=== PATIENT | female | born 1965 | race Caucasian/White ===

== ENCOUNTER 2019-10-03 08:51 | Inpatient (IN) | payer OTHER ==
[2019-09-16 15:29] VITALS: BMI 30.7
--- NOTE | 2019-10-03 07:46 | HP ---
Admitting History and Physical - Admission Chief Complaint: left hip osteoarthritis x years History of Present Illness: 53 year old female presents in regard to their left hip. Longstanding history of left hip osteoarthritis. Patient complains of pain, limited ROM, difficulty ambulating and difficulty completing ADLs. Patient has failed conservative treatment measures including PO medications, injections, exercise programs and activity modification. At this point, patient wishes to proceed with surgical intervention, a left total hip arthroplasty - MAKOplasty. History Source: Patient - Past Medical History Cardiovascular: Yes: HTN ...LMP Comment: 2017 Psych: Yes: Depression Musculoskeletal: Yes: Osteoarthritis (left hip) - Past Surgical History Additional Past Surgical History: See history & physical. - Smoking History Smoking history: Never smoked Have you smoked in the past 12 months: No - Alcohol/Substance Use Hx Alcohol Use: Yes (RARE) Home Medications - Allergies Allergies/Adverse Reactions: Allergies Allergy/AdvReac Type Severity Reaction Status Date / Time No Known Allergies Allergy Verified 09/16/19 15:22 - Home Medications Home Medications: Ambulatory Orders Fluoxetine HCl 10 mg PO DAILY 09/16/19 Fluoxetine HCl 60 mg PO DAILY 09/16/19 Gabapentin 1,500 mg PO HS 09/16/19 Gabapentin 300 mg PO BID 09/16/19 Propranolol HCl 20 mg PO DAILY 09/16/19 Physical Examination Constitutional: Yes: Well Nourished, No Distress Eyes: Yes: Conjunctiva Clear HENT: Yes: Atraumatic Neck: Yes: Supple Cardiovascular: Yes: Regular Rate and Rhythm Respiratory: Yes: Regular Gastrointestinal: Yes: Soft ...Rectal Exam: Yes: Deferred Musculoskeletal: Yes: Joint Stiffness (left hip), Joint Swelling (left hip) Assessment/Plan 53 year old female presents in regard to their left hip. Longstanding history of left hip osteoarthritis. Patient complains of pain, limited ROM, difficulty ambulating and difficulty completing ADLs. Patient has failed conservative treatment measures including PO medications, injections, exercise programs and activity modification. At this point, patient wishes to proceed with surgical intervention, a left total hip arthroplasty - MAKOplasty. Pros, cons, risks benefits and alternatives of a left total hip arthroplasty, MAKOplasty were discussed with the patient at length. Patient confirms their understanding and consents to proceed with a left total hip arthroplasty, MAKOplasty.
[~2019-10-03 08:51] MED LIST: BUPIVICAINE 0.25%/MORPH PF/KETOROLAC - 51ML DISP.SYRINGE IA ONE; CEFAZOLIN 2 GM/D5W 2 GM/50 ML ML IVPB ONE; CELECOXIB 200 MG CAPSULE PO ONE; PANTOPRAZOLE 40 MG TABLET (FP) PO ONE; TRANEXAMIC ACID 1000 MG/10 ML VIAL IVPB ONE; TRANEXAMIC ACID 1000 MG/10 ML VIAL IVPUSH ONE; VANCOMYCIN 1,000 MG VIAL (RESTRICTED TO ID ONLY) IVPB ONE; oxyCODONE HCL 10 MG SUSTAINED ACTING TABLET PO ONE
[2019-10-03] MEDS ORDERED: CELECOXIB 200 MG CAPSULE ONE (09:51)
[2019-10-03] MEDS ORDERED: PANTOPRAZOLE 40 MG TABLET (FP) ONE (09:51)
[2019-10-03] MEDS ORDERED: oxyCODONE HCL 10 MG SUSTAINED ACTING TABLET ONE (09:51)
[2019-10-03] MEDS ORDERED: PANTOPRAZOLE 40 MG TABLET (FP) PO ONE (10:00)
[2019-10-03] MEDS ORDERED: oxyCODONE HCL 10 MG SUSTAINED ACTING TABLET PO ONE (10:03)
[2019-10-03] MEDS ORDERED: CELECOXIB 200 MG CAPSULE PO ONE (10:07)
[2019-10-03] MEDS ORDERED: TRANEXAMIC ACID 1000 MG/10 ML VIAL ONE ×3 (10:17→14:05)
[2019-10-03] MEDS ORDERED: ceFAZolin SODIUM 1 GM VIAL ONE ×2 (10:17→11:52)
[2019-10-03] MEDS ORDERED: VANCOMYCIN 1,000 MG VIAL (RESTRICTED TO ID ONLY) ONE (10:17)
[2019-10-03] MEDS ORDERED: BUPIVICAINE 0.25%/MORPH PF/KETOROLAC - 51ML DISP.SYRINGE IA ONE (10:18)
[2019-10-03] MEDS ORDERED: BUPIVACAINE HCL/PF 0.5% (5 MG/ML) 30 ML VIAL IJ ONE (10:53)
[2019-10-03] MEDS ORDERED: MIDAZOLAM HCL 2 MG/2 ML SINGLE DOSE VIAL ONE (10:53)
[2019-10-03] MEDS ORDERED: oxyCODONE HCL 5 MG TABLET PO PRN (10:58)
[2019-10-03] MEDS ORDERED: ONDANSETRON 4 MG/2 ML VIAL IVPUSH PRN ×2 (10:58→15:25)
[2019-10-03] MEDS ORDERED: LIDOCAINE HCL/PF 2% SDV 5ML VIAL ONE (11:21)
[2019-10-03] MEDS ORDERED: PROPOFOL 20 ML ONE ×3 (11:21→13:54)
[2019-10-03] MEDS ORDERED: EPHEDRINE SULFATE/0.9% NACL/PF 50 MG/10 ML SYRINGE NR ONE (11:40)
[2019-10-03] MEDS ORDERED: DEXAMETHASONE SOD PHOSPHATE 4 MG/1 ML VIAL ONE (12:14)
[2019-10-03] MEDS ORDERED: ONDANSETRON 4 MG/2 ML VIAL ONE (12:14)
[2019-10-03] MEDS ORDERED: VANCOMYCIN 1,000 MG VIAL (RESTRICTED TO ID ONLY) IVPB ONE (14:19)
[2019-10-03] MEDS ORDERED: TRANEXAMIC ACID 1000 MG/10 ML VIAL IVPB ONE (14:29)
[2019-10-03] MEDS ORDERED: ACETAMINOPHEN INJECTION 100 ML IVPB ONE (15:02)
--- NOTE | 2019-10-03 15:11 | SURG ---
Surgery Grid Molder Note Grid Molder: Peng Davis PA-C Date of Service: 10/03/19 Diagnosis: Left hip osteoarthritis Procedure: Left hip arthroplasty (Olaf) I was present for the entirety of the operative procedure. For further detail, please refer to operative report. Visit type - Case Type Case Type: Scheduled - Emergency Emergency Visit: No - New patient This patient is new to me today: Yes Date on this admission: 10/03/19 - Critical Care Critical Care patient: No
[2019-10-03] MEDS: ACETAMINOPHEN 1000 MG/100 ML VIAL (NON FORMULARY) IVPB ONE ×2 (15:15→15:54)
[2019-10-03] MEDS ORDERED: KETOROLAC TROMETHAMINE 30 MG/1 ML VIAL ONE (15:19)
[2019-10-03] MEDS ORDERED: traMADol HCL 50 MG TABLET ONE (15:21)
[2019-10-03] MEDS ORDERED: MAGNESIUM HYDROX 2400MG/30ML ORAL SUSPENSION 30 ML CUP PO PRN (15:25)
[2019-10-03] MEDS ORDERED: MAG HYDROX/AL HYDROX/SIMETH 30 ML UNIT-DOSE CUP PO PRN (15:25)
--- NOTE | 2019-10-03 15:27 | OP ---
Operative Note - Note: Operative Date: 10/03/19 Pre-Operative Diagnosis: left hip OA Operation: left ASHLIE MAC Post-Operative Diagnosis: Same as Pre-op Surgeon: Issac Rodriguez Process Artist: Peng Davis Anesthesia: Spinal Estimated Blood Loss (mls): 250
[2019-10-03] MEDS ORDERED: LACTATED RINGERS SOLUTION 1,000 ML IV SCH (15:30)
[2019-10-03] MEDS: LACTATED RINGERS SOLUTION 1,000 ML IV SCH (15:54)
[2019-10-03] MEDS: traMADol HCL 50 MG TABLET PO SCH ×2 (15:55→20:31)
[2019-10-03] MEDS: KETOROLAC TROMETHAMINE 30 MG/1 ML VIAL IVPUSH SCH ×2 (15:55→20:31)
[2019-10-03] MEDS: CEFAZOLIN 2 GM/D5W 2 GM/50 ML ML IVPB SCH (17:42)
[2019-10-03] MEDS: GABAPENTIN 300 MG CAPSULE (FP) PO SCH (21:01)
[2019-10-03] MEDS: SENNOSIDES/DOCUSATE COMBO (SENNA PLUS) TABLET (UD) PO SCH (21:01)
[2019-10-03] MEDS: ASCORBIC ACID 500 MG TABLET (FP) PO SCH (21:02)
[2019-10-03] MEDS: CELECOXIB 200 MG CAPSULE PO SCH (21:02)
[2019-10-04] MEDS ORDERED: DEXAMETHASONE SOD PHOSPHATE 10 MG/1 ML VIAL IVPB ONE
[2019-10-04] MEDS: CEFAZOLIN 2 GM/D5W 2 GM/50 ML ML IVPB SCH (01:51)
[2019-10-04] MEDS: traMADol HCL 50 MG TABLET PO SCH ×4 (03:25→21:32)
[2019-10-04] MEDS: KETOROLAC TROMETHAMINE 30 MG/1 ML VIAL IVPUSH SCH ×2 (03:25→09:17)
[2019-10-04] MEDS: oxyCODONE HCL 5 MG TABLET PO PRN ×2 (04:58→21:32)
[2019-10-04 07:22] LABS: HEMATOCRIT 34.6 % (32.4-45.2); HEMOGLOBIN 11.6 GM/dl (10.7-15.3); MCH 28.8 pg (25.7-33.7); MCHC 33.6 g/dl (32.0-36.0); MEAN CELL VOLUME 85.8 fl (80-96); MEAN PLT VOLUME 7.7 fl (7.5-11.1); PLATELET COUNT 223 K/MM3 (134-434); RBC 4.03 M/mm3 (3.60-5.2); RDW 12.5 % (11.6-15.6); WHITE BLOOD COUNT 10.6 K/mm3 (4.0-10.8)
[2019-10-04] MEDS: ASPIRIN 325 MG TABLET PO SCH (07:44)
[2019-10-04 07:57] LABS: CALCIUM 8.6 mg/dl (8.5-10); CREATININE 0.8 mg/dl (0.55-1.3); POTASSIUM 4.4 mmol/L (3.5-5.1)
[2019-10-04] MEDS ORDERED: PT OWN MED DRAWER 7, Y5N ONE (09:10)
[2019-10-04] MEDS: PANTOPRAZOLE 40 MG TABLET (FP) PO SCH (09:14)
[2019-10-04] MEDS: SENNOSIDES/DOCUSATE COMBO (SENNA PLUS) TABLET (UD) PO SCH ×2 (09:14→21:31)
[2019-10-04] MEDS: CELECOXIB 200 MG CAPSULE PO SCH ×2 (09:14→21:31)
[2019-10-04] MEDS: ASCORBIC ACID 500 MG TABLET (FP) PO SCH ×2 (09:14→21:31)
[2019-10-04] MEDS: MULTIVITAMINS (DAILY MVI) TABLET (FP) PO SCH (09:14)
[2019-10-04] MEDS: GABAPENTIN 300 MG CAPSULE (FP) PO SCH ×2 (09:16→22:51)
[2019-10-04] MEDS: FLUOXETINE HCL PO SCH (09:18)
[2019-10-04] MEDS ORDERED: FLUoxetine HCL 20 MG CAPSULE (FP) PO SCH (10:00)
--- NOTE | 2019-10-04 12:15 | PN ---
Progress Note (short form) - Note Progress Note: Anesthesia postop note POD#1, S/P left MAC under spinal and para vertebral block. Pat seen and examined. VSS. PT today. Pain 1-03/11. No apparent post anesthesia complications.
[2019-10-04] MEDS: LACTATED RINGERS SOLUTION 1,000 ML IV SCH (12:36)
--- NOTE | 2019-10-04 20:05 | PN ---
Progress Note (short form) - Note Progress Note: Pt seen and examined. Doing well. AVSS Selected Entries 10/04/19 10/04/19 13:31 15:52 Temperature 97.8 F Pulse Rate 79 70 Respiratory 18 18 Rate Blood Pressure 115/78 106/53 L O2 Sat by Pulse 100 Oximetry (%) Oxygen Delivery Room Air Method Laboratory Tests 10/04/19 10/04/19 07:08 07:08 WBC 10.6 Hgb 11.6 Hct 34.6 Plt Count 223 Sodium 134 L Potassium 4.4 Chloride 104 Carbon Dioxide 23 Anion Gap 7 L BUN 13.0 Creatinine 0.8 Est GFR (CKD-EPI)AfAm 96.19 Est GFR (CKD-EPI)NonAf 83.00 Random Glucose 135 H Calcium 8.6 Gen: NAD LLE: c/d/i, NVID A/P s/p L ASHLIE WATTS PT/OOB - WBAT LLE D/C home in AM
--- NOTE | 2019-10-04 20:08 | DS ---
Physical Examination Vital Signs: Vital Signs Temperature 97.8 F 10/04/19 13:31 Pulse Rate 70 10/04/19 15:52 Respiratory Rate 18 10/04/19 15:52 Blood Pressure 106/53 L 10/04/19 15:52 O2 Sat by Pulse Oximetry (%) 100 10/04/19 15:52 Labs: CBC, BMP 10/04/19 07:08 10/04/19 07:08 Discharge Summary Problems reviewed: Yes Reason For Visit: UNILATERAL PRIMARY OSTEOARTHRITIS, LEFT HIP Current Active Problems Osteoarthritis of left hip (Acute) Procedures: Principal: left ASHLIE MAC Hospital Course: Admitted for elective surgery. Procedure performed without complications. Pt received postoperative antibiotic prophylaxis and DVT ppx. Ambulated with physical therapy. Stable for discharge home with outpatient followup. Condition: Stable - Instructions Diet, Activity, Other Instructions: Dr Rodriguez - Hip Replacement Instructions Keep the Aquacel dressing on until removed by Dr. Rodriguez in 10-14 days - it is antibacterial and waterproof and you can shower with it on. Call the office for a follow-up appointment with Dr. Rodriguez in 10-14 days. Take one Aspirin 325mg daily for 6 weeks to prevent blood clots in your legs. Take one Pantoprazole 40mg daily for 6 weeks to protect against heartburn and ulcers. Take Cephalexin (antibiotic) 3x/day for 10 days to help prevent skin infection. Take Celebrex 200mg twice daily for 30 days to reduce swelling and inflammation. Take a multivitamin, stool softener and extra Vitamin C supplement daily. For pain: *Mild pain (1-3/10): Take 1 Tramadol tablet every 4 hours as needed. Moderate pain (4-6/10): Take 1 Tramadol tablet and 1 Percocet tablet every 4 hours as needed. Severe pain (7-10/10): Take 1 Tramadol tablet and 2 Percocet tablets every 4 hours as needed. Activity: You can put as much weight on the operative leg as you want. For the first 6 weeks, all you need to do is walk around the house, go up/down stairs, and sit down/get up. After 6 weeks when everything is healed (and bone has grown into the implant) you will be sent for more intensive outpatient physical therapy. Always use a walker or cane for balance and to prevent falls. Expect to see swelling / bruising from the operative site all the way down to your toes. Wear the Compression stocking on the operative side during the day to minimize how much swelling there is in your foot/ankle. Don't wear the stocking at night. You don't have to wear the stocking on the other side. Disposition: VNS/HOME HEALTH CARE - Home Medications Comprehensive Discharge Medication List: Ambulatory Orders Fluoxetine HCl 10 mg PO DAILY 09/16/19 Fluoxetine HCl 60 mg PO DAILY 09/16/19 Gabapentin 1,500 mg PO HS 09/16/19 Gabapentin 300 mg PO BID 09/16/19 Propranolol HCl 20 mg PO DAILY 09/16/19 Ascorbic Acid [Vitamin C -] 500 mg PO BID tablet 10/04/19 Aspirin [ASA -] 325 mg PO DAILY@0800 tablet 10/04/19 Celecoxib [CeleBREX -] 200 mg PO BID #60 capsule 10/04/19 Cephalexin Monohydrate [Keflex -] 500 mg PO TID #30 capsule 10/04/19 Multivitamins [Multivit ([facility])] 1 tab PO DAILY tab 10/04/19 Oxycodone HCl/Acetaminophen [Percocet 5-325 mg Tablet] 1 - 2 tab PO Q4H PRN #60 tablet MDD 10 10/04/19 Pantoprazole Sodium [Protonix -] 40 mg PO DAILY #40 tablet.ec 10/04/19 Sennosides/Docusate Sodium [Pericolace -] 2 tablet PO BID tablet 10/04/19 traMADol HCL [Ultram -] 50 mg PO Q4H PRN #42 tablet MDD 6 10/04/19
--- NOTE | 2019-10-05 01:58 | SPEC ---
DATE OF OPERATION: 10/03/2019 PREOPERATIVE DIAGNOSIS: Left hip osteoarthritis. POSTOPERATIVE DIAGNOSIS: Left hip osteoarthritis. PROCEDURE: Left total hip replacement with MAKOplasty robotic navigation. ATTENDING: Chase Chaves MD REFERRAL MANAGER: NATALEE Mullins ANESTHESIA: Spinal plus sedation. ESTIMATED BLOOD LOSS: 250 mL. COMPLICATIONS: None. DISPOSITION: The patient was transferred to the PACU in stable condition. IMPLANTS USED: [place] Accolade II size 4 femoral component, [place] Trident II 48-mm acetabular component with 25-mm and 20-mm acetabular screws, MDM bipolar head ball and liner with inner +3-mm head ball. INDICATIONS: This is a 53-year-old female who presents to the office complaining of severe bilateral hip pain. She was seen and examined by Dr. Chaves and diagnosed with severe bilateral hip osteoarthritis. The patient was initially treated conservatively, but continued to have severe pain and ambulatory dysfunction. She was therefore indicated for a total hip replacement. The left was more painful, so we elected to proceed with this one first. The risks, benefits, and alternatives to the procedure were explained to the patient in great detail and she elected to proceed with the surgery. On the day of surgery, the patient was taken to the operating room and placed on the OR table. Spinal anesthesia was administered by the anesthesiologist. The patient was then positioned in the lateral decubitus position on the table and all bony prominences were padded. An axillary roll was placed. The operative hip was then prepped and draped in the usual sterile fashion and intravenous antibiotics were given for infection prophylaxis. A surgical time-out was then performed with the team, and the patients identity, procedure, side, availability of implants, and the administration of antibiotics were confirmed. An approximately 15-cm longitudinal incision was made through the skin centered on the greater trochanter of the hip. This dissection was carried down through the subcutaneous tissues to the deep fascia. This fascia was then incised and a Cobra was placed around the inferior femoral neck. Electrocautery was used to reflect the anterior 40% of the gluteus medius and minimus starting at the musculotendinous junction and leaving a cuff for closure. This was reflected to reveal the capsule of the hip joint. An anterior capsulectomy was performed and the femoral head and neck were visualized. Grade 4 changes were noted diffusely throughout the joint. At this point, three small stab incisions were made superior to the main incision along the iliac crest. Three self-drilling Steinmann pins were then placed and the eeden pelvic array was attached. Reference points on the limb were then entered into the robotic device and the limb length deficiency, offset, and femoral neck resection level were then calculated by the software. The hip was then dislocated with traction and external rotation. An oscillating saw was used to make the femoral neck cut at the level previously templated, and the femoral head was removed. Attention was then turned to the acetabulum. Retractors were then placed around the acetabulum and the labrum was removed. An acetabular checkpoint pin and the eeden software were used to register the contours of the acetabulum. The acetabulum was then reamed in a single stage to the preoperatively templated size using the eeden robotic arm. The appropriately sized cup was then impacted and had solid fixation as well as the preset inclination and version of 40 and 20 degrees, respectively. A polyethylene liner was then placed in the cup. Attention was then turned back to the femur, which was externally rotated for improved visualization. A femoral neck elevator was used to present the femoral neck cut, a box osteotome was used to enter the femoral canal, and a canal finder was used to go down the femoral shaft. The Olaf broaches were used sequentially until the optimal scratch fit was achieved. This correlated with the preoperatively templated size. From here, several different offset head and neck configurations were tested until excellent stability and length were obtained. These measurements were quantified using the eeden software. All trial components were then removed, the femur was copiously irrigated, and the final components were placed. Leg length and stability were checked again and found to be excellent. Irrigation was performed again. Wound closure was started by repairing the abductor muscles with a no. 2 FiberWire stitch in a Krackow configuration passed through bone tunnels in the greater trochanter and tied over a bony bridge. This repair was then reinforced with a 0 V-Loc 180 barbed suture. Next, no. 1 Polysorb and 0 V-Loc 180 were used to close the fascia. The deep subcutaneous tissue was closed with no. 1 Polysorb sutures, and 2-0 Polysorb was used for the superficial subcutaneous tissue. The skin was closed using both 3-0 V-Loc 90 suture in a running subcuticular fashion and SwiftSet skin adhesive. The Olaf array and pins were removed from the iliac crest and the stab incision sites were irrigated and closed with 4-0 Polysorb sutures and SwiftSet skin adhesive. Once this was completed, a sterile dressing was applied. The patient was then awakened and taken to the PACU in stable condition. After final implants were placed, a dilute betadine lavage was performed for 3 minutes. Following this, the wound was thoroughly irrigated with normal saline via pulsatile lavage and wound closure was begun. CHASE CHAVES M.D. [id number]
[2019-10-05] MEDS: traMADol HCL 50 MG TABLET PO SCH ×3 (03:35→14:30)
[2019-10-05] MEDS: ASPIRIN 325 MG TABLET PO SCH (07:44)
[2019-10-05 08:00] LABS: HEMATOCRIT 33.1 % (32.4-45.2); HEMOGLOBIN 10.9 GM/dl (10.7-15.3); MCH 28.6 pg (25.7-33.7); MEAN CELL VOLUME 86.6 fl (80-96); PLATELET COUNT 198 K/MM3 (134-434); RBC 3.83 M/mm3 (3.60-5.2); RDW 12.5 % (11.6-15.6); WHITE BLOOD COUNT 8.5 K/mm3 (4.0-10.8)
[2019-10-05] MEDS: MULTIVITAMINS (DAILY MVI) TABLET (FP) PO SCH (10:25)
[2019-10-05] MEDS: GABAPENTIN 300 MG CAPSULE (FP) PO SCH (10:25)
[2019-10-05] MEDS: PANTOPRAZOLE 40 MG TABLET (FP) PO SCH (10:25)
[2019-10-05] MEDS: CELECOXIB 200 MG CAPSULE PO SCH (10:25)
[2019-10-05] MEDS: ASCORBIC ACID 500 MG TABLET (FP) PO SCH (10:25)
[2019-10-05] MEDS: FLUOXETINE HCL PO SCH (10:31)
[2019-10-05] MEDS: SENNOSIDES/DOCUSATE COMBO (SENNA PLUS) TABLET (UD) PO SCH (10:33)
[2019-10-05 14:12] VITALS: TEMP 99.3
[2019-10-05] MEDS: LACTATED RINGERS SOLUTION 1,000 ML IV SCH (14:27)
--- NOTE | 2019-10-05 15:20 | PATH ---
Surgical Pathology Report Patient Name: JOHN RILEY Med. Rec. #: [id number] /Age/Gender: 1965 (Age: 53) / F Account: [id number] Location: [facility] MED-SURG Taken: 10/03/2019 Received: 10/03/2019 Reported: 10/05/2019 Physicians: Issac Rodriguez M.D. Specimen(s) Received LEFT FEMORAL HEAD Clinical History Unilateral primary osteoarthritis left hip Final Diagnosis FEMORAL HEAD, LEFT, TOTAL HIP REPLACEMENT: DEGENERATIVE JOINT DISEASE. Electronically Signed Nighat Tamez M.D. Gross Description Received in formalin, labeled "left femoral head," is a 4.4 x 4.4 x 3.6 cm. femoral head with a 0.7 cm in length portion of femoral neck attached. The margin of resection is smooth. There is a 4.4 cm in greatest dimension area of eburnation present. The remaining articular surface is crowe-brown and diffusely granular. The underlying trabecular bone is yellow and hard. A wireless sales representative section is submitted in one cassette, following decalcification. /10/04/2019 [facility]10/04/2019
[2019-10-05 16:10] VITALS: BP 100/59; PULSE 72
== END 2019-10-05 16:26 | disposition home health service (06) | DRG 470 ==
LOC: FM/S 08:51
PROVIDERS: ADMIT Student in an Organized Health Care Education/Training Program; ATTEND Student in an Organized Health Care Education/Training Program
PROC: 8E0W0CZ Robotic Assisted Procedure of Trunk Region, Open Approach (ICD-10-PCS; 2019-10-03)
PROC: 0SRB0JA Replacement of Left Hip Joint with Synthetic Substitute, Uncemented, Open Approach (ICD-10-PCS; principal; 2019-10-03 12:21)
DX: M16.12 Unilateral primary osteoarthritis, left hip (principal); I10 Essential (primary) hypertension; F32.9 Major depressive disorder, single episode, unspecified
CPT/HCPCS: 36415; 73502-TC-LT-FY; 80048; 85027; 88304-TC; 88311-TC; 94760; 97116-GP; 97163-GP; J0131; J1100

== ENCOUNTER 2020-08-10 07:32 | Inpatient (IN) | payer OTHER ==
[2020-08-06 14:47] VITALS: BMI 32.5
--- OUTSIDE RECORDS SUMMARY | 2020-08-10 07:37 | XMS ---
:1965 Author Organization [facility] Care Team Providers Name Role Phone BEATRICEKEY Levi Unavailable Unavailable Tori Scanlon NP Unavailable Unavailable Tori Scanlon NP Unavailable Unavailable Re-disclosure Warning The records that you are about to access may contain information from federally- assisted alcohol or drug abuse programs. If such information is present, then the following federally mandated warning applies: This information has been disclosed to you from records protected by federal confidentiality rules (42 CFR part 2). The federal rules prohibit you from making any further disclosure of this information unless further disclosure is expressly permitted by the written consent of the person to whom it pertains or as otherwise permitted by 42 CFR part 2. A general authorization for the release of medical or other information is NOT sufficient for this purpose. The Federal rules restrict any use of the information to criminally investigate or prosecute any alcohol or drug abuse patient.The records that you are about to access may contain highly sensitive health information, the redisclosure of which is protected by Article 27-F of the [place] Public Health law. If you continue you may haveaccess to information: Regarding HIV / AIDS; Provided by facilities licensed or operated by the [place] Office of Mental Health; or Provided by the [place] Office for People With Developmental Disabilities. If such information is present, then the following [place] mandated warning applies: This information has been disclosed to you from confidential records which are protected by state law. State law prohibits you from making any further disclosure of this information without the specific written consent of the person to whom it pertains, or as otherwise permitted by law. Any unauthorized further disclosure in violation of state law may result in a fine or long term sentence or both. A general authorization for the release of medical or other information is NOT sufficient authorization for further disclosure. Encounters Encounter Providers Location Date Indications Data Source(s ) Outpatient Attender: Tori ALEXANDER 06/14/2020 [facility] Scan[facility] NPAdmitter: 03:32:00 PM Hospi michele ALLEN EDT - 07/16/2020 09:27:00 AM EDT Patient discharged. Insurance Providers Payer name Policy type Policy ID Covered Covered constitution party's Policy P marylin / Coverage constitution party ID relationship to [facility] ormation type [place] MEDICARE [id number] SP [id number] MEDICAID [id number] SP [id number] SELF PAY 000 Self 000 MEDICAID OP [id number] Self [id number] MEDICARE [id number] Self [id number] 27 7 MEDICARE [id number] SP [id number] Results ID Date Data Source [id number] 08/06/2020 09:09:00 AM EDT [facility] Name Value Range Interpretation Description Data Sup porting Code Source(s) Document(s ) SARS [facility] coronavirus 2 RNA This lab was ordered by [facility] and reported by [facility]. Procedure
[2020-08-10] MEDS ORDERED: CELECOXIB 200 MG CAPSULE PO ONE (08:02)
[2020-08-10] MEDS ORDERED: TRANEXAMIC ACID 1000 MG/10 ML VIAL IVPUSH ONE (08:02)
[2020-08-10] MEDS ORDERED: CEFAZOLIN 2 GM in DEXTROSE 5%-WATER - 50 ML IVPB ONE (08:02)
--- NOTE | 2020-08-10 08:04 | HP ---
[facility] - Chief Complaint Chief Complaint: right hip pain - Past Medical History Allergies/Adverse Reactions: Allergies Allergy/AdvReac Type Severity Reaction Status Date / Time No Known Allergies Allergy Verified 08/06/20 14:24 Cardiovascular: Yes: HTN Musculoskeletal: Yes: Osteoarthritis (left hip) - Current Medications Current Medications: Home Medications Medication Instructions Recorded Gabapentin 1,500 mg PO HS 09/16/19 Ascorbic Acid [Vitamin C -] 500 mg PO DAILY 08/06/20 Calcium Carbonate/Vitamin D3 2 tab PO DAILY 08/06/20 [Calcium 600-Vit D3 2,500 Sftgl] Cyanocobalamin [Vitamin B12 -] 1,000 mcg PO DAILY 08/06/20 Ferrous Sulfate 325 mg PO DAILY 08/06/20 Fluoxetine HCl 70 mg PO DAILY 08/06/20 Gabapentin 300 mg PO DAILY 08/06/20 Meclizine HCl 25 mg PO PRN PRN 08/06/20 propRANOLol HCL [Inderal] 30 mg PO DAILY 08/06/20 [facility]ellite Physical Exam - Physical Examination General Appearance: Well Nourished, Well Developed, Alert & Oriented x3 ENT: Clear Lung: Normal air movement Extremities: Other (right hip- + ttp ,decr rom, nvi, xrays show grade 4 hip djd) Neurological: Intact, Alert, Oriented Satellite Impression/Plan - Impression/Plan Impression: right hip djd Operative Procedure: right raji thr Date to be Performed: 08/10/20
[2020-08-10] MEDS ORDERED: MIDAZOLAM HCL 2 MG/2 ML SINGLE DOSE VIAL ONE ×2 (09:43→11:44)
[2020-08-10] MEDS ORDERED: ROPIVACAINE HCL 0.5% 30ML VIAL ONE (09:43)
[2020-08-10] MEDS ORDERED: ceFAZolin SODIUM 1 GM VIAL ONE ×3 (10:39→18:11)
[2020-08-10] MEDS ORDERED: VANCOMYCIN 1,000 MG VIAL (RESTRICTED TO ID ONLY) ONE (10:39)
[2020-08-10] MEDS ORDERED: DEXAMETHASONE SOD PHOSPHATE 4 MG/1 ML VIAL ONE ×2 (11:12→13:00)
[2020-08-10] MEDS ORDERED: ONDANSETRON 4 MG/2 ML VIAL ONE ×2 (11:12→13:00)
[2020-08-10] MEDS ORDERED: TRANEXAMIC ACID 1000 MG/10 ML VIAL ONE (11:13)
[2020-08-10] MEDS ORDERED: EPHEDRINE SULFATE/0.9% NACL/PF 50 MG/10 ML SYRINGE NR ONE (12:06)
[2020-08-10] MEDS ORDERED: VANCOMYCIN 1,000 MG VIAL (RESTRICTED TO ID ONLY) IVPB ONE (12:30)
[2020-08-10] MEDS ORDERED: ONDANSETRON 4 MG/2 ML VIAL IVPUSH PRN ×2 (12:48→12:54)
[2020-08-10] MEDS ORDERED: traMADol HCL 50 MG TABLET PO PRN (12:48)
[2020-08-10] MEDS ORDERED: MECLIZINE HCL 25 MG TABLET (FP) PO PRN (12:53)
[2020-08-10] MEDS ORDERED: MAGNESIUM HYDROX 2400MG/30ML ORAL SUSPENSION 30 ML CUP PO PRN (12:54)
[2020-08-10] MEDS ORDERED: MAG HYDROX/AL HYDROX/SIMETH 30 ML UNIT-DOSE CUP PO PRN (12:54)
--- NOTE | 2020-08-10 12:58 | OP ---
Operative Note - Note: Operative Date: 08/10/20 (te) Pre-Operative Diagnosis: right hip djd Operation: right raji thr Post-Operative Diagnosis: Same as Pre-op Surgeon: Presley Mcduffie First Officer And Flight Instructor: Oscar Blanton Anesthesiologist/PONY RIDE OPERATOR: Suhas Hansen Anesthesia: Spinal, Local Specimens Removed: femoral head Estimated Blood Loss (mls): 150
[2020-08-10] MEDS ORDERED: LACTATED RINGERS SOLUTION 1,000 ML IV SCH ×2 (13:00)
[2020-08-10] MEDS ORDERED: ACETAMINOPHEN 325 MG TABLET (FP) ONE (14:27)
[2020-08-10] MEDS: ACETAMINOPHEN 325 MG TABLET (FP) PO SCH ×3 (14:31→21:00)
--- NOTE | 2020-08-10 14:57 | OP ---
DATE OF OPERATION: 08/10/2020 PREOPERATIVE DIAGNOSIS: Degenerative joint disease, right hip. POSTOPERATIVE DIAGNOSIS: Degenerative joint disease, right hip. PROCEDURE: Right total hip replacement with robotic-assisted navigation (ASHLIEOliver cortes). SURGEON: Presley Mcduffie MD FARMER AND GRAZIER: Oscar Tello PA-C. ANESTHESIA: Regional spinal. CLOSURE: Emma hip system with a No. 5 Accolade 2 stem, a +3 MDM head, a 48-mm Press-fit Trident II acetabulum, No. 1 Vicryl fascia, 0 and 2-0 for subcutaneous, 3-0 V-Loc for the skin, and 4-0 Monocryl for pin sites. ESTIMATED BLOOD LOSS: 200 mL. COMPLICATIONS: None. CONDITION: To recovery room in stable condition. DESCRIPTION OF OPERATIVE PROCEDURE: The patient was taken to the operating room on August 10, 2020. Spinal and regional anesthesia was administered by the anesthesiologist. IV Kefzol was administered prophylactically prior to the case as well as tranexamic acid. The right hip was prepped and draped in the usual sterile fashion with the patient in the lateral decubitus position. A posterior approach was utilized to gain access to the hip. A 12 to 15-cm curved longitudinal incision was made centered over the posterolateral aspect of the greater trochanter. The incision was needed to be extended due to a large amount of adipose tissue encountered. Dissection was carried down to the fascial layer. The fascia was opened through the ITB and the gluteus maximum was spreading the fibers in the direction of their coursing through the hip. A Charnley retractor was placed exposing the greater trochanter. Three stab holes were made over the iliac wing and through each one of these stab incisions was drilled a threaded pin through the 2 tables of the ilium and these pins were attached to the navigation array. Checkpoint was malleted into the greater trochanter. The short external rotators were detached off the insertion of the greater trochanter and peeled off the capsule. The sciatic nerve was very close to the hip joints at this portion of the case and throughout the case. We took some pressure off the sciatic nerve by cutting the superior 3rd of the insertion of the gluteus maximum into the femur. Gentle retraction was done throughout case to hold the sciatic nerve as it was again very, very, close to the hip joint throughout this case unusually so. The capsulotomy was then performed. The checkpoint was registered with the greater trochanter and the inferior pole of the patella for later limb length measurements. The hip was dislocated. The head was osteotomized at the appropriate level as directed by the navigation device. Anterior, posterior retractors were then placed around the acetabulum. Again an extra padding was made over the sciatic nerve to hold the sciatic nerve gently out of the way as it was again very close to the hip joint throughout the case. The stem was cleaned and a circumferential labrum excision was performed. The SM was then registered by multiple sites in and around the pelvis. I then confirmed by popping the bubbles. The acetabulum was then reamed with the robotic device for a 48 reamer achieving good bleeding surface and good coverage. The real 48 Trident II cup was then malleted into place and was found to bottom out as directed by the navigation device with a 40-20 orientation. One screw was placed superiorly for adjuvant fixation achieving excellent fixation. The liner for the MDM was then cold welded into the acetabulum. Circumferential incision of large osteophytes posteriorly and anteriorly was performed again while dissecting out these osteophytes posteriorly and inferiorly. The sciatica nerve was again gently retracted to not injure it while removing these osteophytes. Next, our attention was directed to the femur and the proximal lemur was prepared using of the canal finder and serial broaches until a No. 4 fit well. A trial reduction; however, with the No. 4 and a 130-degree neck revealed that it was short from the other side. We therefore decided to use a No. 5 stem and leave if slightly proud. The real No. 5 was then malleted into place with trial reduction with a +3 MDM liner to achieve equal leg lengths at the contralateral side was stable to extension and external rotation. It had a negative a negative telescope and negative hang test and was stable to marked flexion and at 90 degrees of flexion was stable to marked adduction internal rotation. The trial component was removed. The real +3 MDM head achieved was cold welded and it was reduced again. Each time the sciatica nerve was retracted out of the way as not to impale it into the hip joint. The navigation device revealed that we were spot on as far as the limb length compared to the contralateral side. The hip was irrigated with antibiotic irrigation. Vancomycin powder was placed in the joint and the fascia was closed using a No. 1 Vicryl interrupted suture, 0 and 2-0 subcutaneous and 3-0 V-Loc for the skin. The pins were removed and then closed with 4-0 Vicryl. A sterile pressure dressing was applied. The patient was placed in the supine position. X-rays revealed excellent position of the components bilateral, SCDs and adduction pillow was applied. The patient was awakened from anesthesia and transferred to the recovery room in stable condition. There were no complications. Estimated blood loss was approximately 200 mL. Estiven [id number]
[2020-08-10] MEDS: oxyCODONE HCL 5 MG TABLET PO PRN ×2 (18:38→22:36)
[2020-08-10] MEDS: CEFAZOLIN 3 GM in DEXTROSE 5%-WATER 100 ML IVPB SCH (18:39)
[2020-08-10] MEDS: SENNOSIDES/DOCUSATE COMBO (SENNA PLUS) TABLET (UD) PO SCH (21:58)
[2020-08-11] MEDS ORDERED: ceFAZolin SODIUM 1 GM VIAL ONE (02:08)
[2020-08-11] MEDS ORDERED: DEXTROSE 5%-WATER 100 ML IVPB ONE (02:09)
[2020-08-11] MEDS: ACETAMINOPHEN 325 MG TABLET (FP) PO SCH ×4 (02:20→21:15)
[2020-08-11] MEDS: CEFAZOLIN 3 GM in DEXTROSE 5%-WATER 100 ML IVPB SCH (02:20)
[2020-08-11] MEDS: oxyCODONE HCL 5 MG TABLET PO PRN ×4 (02:21→18:42)
[2020-08-11 08:20] LABS: HEMATOCRIT 30.8 % (32.4-45.2); HEMOGLOBIN 10.2 GM/dl (10.7-15.3); MCHC 33.2 g/dl (32.0-36.0); MEAN CELL VOLUME 84.2 fl (80-96); MEAN PLT VOLUME 7.9 fl (7.5-11.1); PLATELET COUNT 234 K/MM3 (134-434); RBC 3.66 M/mm3 (3.60-5.2); RDW 13.6 % (11.6-15.6); WHITE BLOOD COUNT 9.4 K/mm3 (4.0-10.8)
[2020-08-11] MEDS: ASPIRIN 325 MG TABLET PO SCH (08:37)
[2020-08-11] MEDS ORDERED: FLUoxetine HCL 10 MG CAPSULE ONE (09:17)
[2020-08-11] MEDS ORDERED: FLUoxetine HCL 20 MG CAPSULE ONE (09:17)
[2020-08-11] MEDS: SENNOSIDES/DOCUSATE COMBO (SENNA PLUS) TABLET (UD) PO SCH ×2 (09:30→21:16)
[2020-08-11] MEDS: FLUOXETINE HCL PO SCH (09:31)
[2020-08-11] MEDS: PANTOPRAZOLE 40 MG TABLET PO SCH (09:32)
[2020-08-11] MEDS: FERROUS SO4 325 MG TABLET (FP) PO SCH (09:32)
[2020-08-11] MEDS: PROPRANOLOL HCL PO SCH (09:33)
[2020-08-11] MEDS ORDERED: GABAPENTIN 300 MG CAPSULE PO SCH ×3 (10:00→22:00)
[2020-08-11] MEDS ORDERED: FLUOXETINE HCL PO SCH (10:00)
[2020-08-11] MEDS: MULTIVITAMINS (DAILY MVI) TABLET (FP) PO SCH (10:33)
--- NOTE | 2020-08-11 11:10 | CONSULT ---
Consultation: REQUESTING PROVIDER: Dr. Mcduffie CONSULT REQUEST: We have been asked to medically evaluate this patient during the post-operative period. HISTORY OF PRESENT ILLNESS: 54 year-old female with a PMH significant for depression, anxiety, OCD, fibroids and irregular menses, degenerative joint disease right hip s/p right total hip replacement [facility] on 08/10/[address] Mcduffie. REVIEW OF SYSTEMS: CONSTITUTIONAL: Absent: fever, chills, diaphoresis, generalized weakness, malaise, loss of appetite, weight change HEENT: Absent: rhinorrhea, nasal congestion, throat pain, throat swelling, difficulty swallowing, mouth swelling, ear pain, eye pain, visual changes CARDIOVASCULAR: Absent: chest pain, syncope, palpitations, irregular heart rate, lightheadedness, peripheral edema RESPIRATORY: Absent: cough, shortness of breath, dyspnea with exertion, orthopnea, wheezing, stridor, hemoptysis GASTROINTESTINAL: Absent: abdominal pain, abdominal distension, nausea, vomiting, diarrhea, constipation, melena, hematochezia GENITOURINARY: Absent: dysuria, frequency, urgency, hesitancy, hematuria, flank pain, genital pain MUSCULOSKELETAL: Absent: myalgia, arthralgia, joint swelling, back pain, neck pain SKIN: Absent: rash, itching, pallor HEMATOLOGIC/IMMUNOLOGIC: Absent: easy bleeding, easy bruising, lymphadenopathy, frequent infections ENDOCRINE: Absent: unexplained weight gain, unexplained weight loss, heat intolerance, cold intolerance NEUROLOGIC: Absent: headache, focal weakness or paresthesias, dizziness, unsteady gait, seizure, mental status changes, bladder or bowel incontinence PSYCHIATRIC: Absent: anxiety, depression, suicidal or homicidal ideation, hallucinations. PHYSICAL EXAMINATION Vital Signs - 24 hr 08/10/20 08/11/20 08/11/20 23:00 02:30 07:00 Temperature 97.6 F 98.1 F 98.3 F Pulse Rate 79 65 64 Respiratory 18 18 18 Rate Blood Pressure 110/69 101/50 L 111/53 L O2 Sat by Pulse 94 L 96 96 Oximetry (%) 08/11/20 08:39 Temperature Pulse Rate Respiratory Rate Blood Pressure O2 Sat by Pulse 96 Oximetry (%) GENERAL: Awake, alert, and fully oriented, in no acute distress. HEAD: Normal with no signs of trauma. EYES: Pupils equal, round and reactive to light, extraocular movements intact, sclera anicteric, conjunctiva clear. No lid lag. LUNGS: Breath sounds equal, clear to auscultation bilaterally. No wheezes, and no crackles. No accessory muscle use. HEART: Regular rate and rhythm, normal S1 and S2 ABDOMEN: Soft, nontender, not distended UPPER EXTREMITIES: 2+ pulses, warm, well-perfused. No cyanosis. No clubbing. Cap refill <2 seconds. No peripheral edema. RLE: Surgical dressing c/d/i, no surrounding erythema, fluctuance; +flex/extend toes, sensory intact NEUROLOGICAL: Cranial nerves II-XII intact. Normal speech. Laboratory Results - last 24 hr 08/11/20 07:15 WBC 9.4 RBC 3.66 Hgb 10.2 L Hct 30.8 L MCV 84.2 MCH 28.0 MCHC 33.2 RDW 13.6 Plt Count 234 MPV 7.9 Active Medications Generic Name Dose Route Start Last Admin Trade Name Freq PRN Reason Stop Dose Admin Acetaminophen 650 mg 08/10/20 14:00 08/11/20 08:37 Tylenol - PO 08/13/20 13:59 650 mg Q6H HOLLEY Administration Al Hydroxide/Mg Hydroxide 30 ml 08/10/20 12:54 Mylanta Oral Suspension - PO Q4H PRN DYSPEPSIA Aspirin 325 mg 08/11/20 08:00 08/11/20 08:37 Asa - PO 325 mg DAILY@0800 HOLLEY Administration Fentanyl 50 mcg 08/10/20 12:48 08/10/20 14:19 Sublimaze Injection - IVPUSH 50 mcg [id number] PRN Administration PAIN-PACU ORDER X 4 DOSES ONLY Ferrous Sulfate 325 mg 08/11/20 10:00 08/11/20 09:32 Feosol - PO 325 mg DAILY HOLLEY Administration Fluoxetine HCl 60 mg/ 70 mg 08/11/20 10:00 08/11/20 09:31 Fluoxetine HCl 10 mg PO 70 mg DAILY HOLLEY Administration Gabapentin 300 mg 08/11/20 10:00 08/11/20 09:30 Neurontin - PO 300 mg DAILY HOLLEY Administration Magnesium Hydroxide 30 ml 08/10/20 12:54 Milk Of Magnesia - PO PRN PRN CONSTIPATION Meclizine HCl 25 mg 08/10/20 12:53 08/11/20 06:11 Antivert - PO 25 mg DAILY PRN Administration VERTIGO Multivitamins/Minerals/Vitamin C 1 tab 08/11/20 10:00 08/11/20 10:33 Tab-A-Vit - PO 1 tab DAILY HOLLEY Administration Ondansetron HCl 4 mg 08/10/20 12:54 Zofran Injection IVPUSH Q6H PRN NAUSEA Oxycodone HCl 10 mg 08/10/20 12:48 Roxicodone - PO Q3H PRN PAIN LEVEL 7 - 10 Oxycodone HCl 5 mg 08/10/20 12:48 08/11/20 08:32 Roxicodone - PO 5 mg Q3H PRN Administration PAIN LEVEL 4 - 6 Pantoprazole Sodium 40 mg 08/11/20 10:00 08/11/20 09:32 Protonix - PO 40 mg DAILY HOLLEY Administration Propranolol HCl 20 mg/ 30 mg 08/11/20 10:00 08/11/20 09:33 Propranolol HCl 10 mg PO Not Given DAILY HOLLEY Senna/Docusate Sodium 2 tablet 08/10/20 22:00 08/11/20 09:30 Pericolace - PO 2 tablet BID HOLLEY Administration Tramadol HCl 50 mg 08/10/20 12:48 08/11/20 00:18 Ultram - PO 50 mg Q3H PRN Administration PAIN LEVEL 1 - 3 Pre op Hgb 14.1 ASSESSMENT/PLAN: 54 year-old female with a PMH significant for depression/anxiety/OCD, fibroids and irregular menses, degenerative joint disease right hip s/p right total hip replacement [facility] on 08/10/[address] Mcduffie. Unable to walk more than a few feet in PT this morning due to dizziness. s/p right total hip replacement [facility] --POD #1 --perioperative antibiotics complete --pain management per surgery --ASA 325mg daily x 6 weeks Dizziness --unable to participate in PT due to dizziness --check orthostatics, IV fluids if indicated Depression/anxiety --continue fluoxetine FEN Fluids: PO intake adequate Electrolytes: replete as indicated Nutrition: regular diet DVT prophylaxis: OOB, ambulation, SCDs, TEDs, ASA 325mg daily Physical therapy Dispo: We will continue to follow the patient. Thank you for this consultative opportunity. Visit type - Emergency Visit Emergency Visit: No - New Patient This patient is new to me today: Yes Date on this admission: 08/11/20 - Critical Care Critical Care patient: No
[2020-08-11] MEDS ORDERED: SODIUM CHLORIDE 1,000 ML IV STA ×2 (11:12→15:20)
[2020-08-11] MEDS ORDERED: SODIUM CHLORIDE 1,000 ML IV SCH ×2 (11:15→16:30)
[2020-08-11] MEDS: GABAPENTIN 300 MG CAPSULE PO SCH (15:16)
[2020-08-12] MEDS: ACETAMINOPHEN 325 MG TABLET (FP) PO SCH ×3 (01:59→14:55)
[2020-08-12] MEDS: oxyCODONE HCL 5 MG TABLET PO PRN ×3 (01:59→14:21)
[2020-08-12 08:07] LABS: HEMATOCRIT 28.6 % (32.4-45.2); HEMOGLOBIN 9.3 GM/dl (10.7-15.3); MCH 27.6 pg (25.7-33.7); MCHC 32.6 g/dl (32.0-36.0); MEAN CELL VOLUME 84.7 fl (80-96); MEAN PLT VOLUME 8.3 fl (7.5-11.1); PLATELET COUNT 207 K/MM3 (134-434); RBC 3.38 M/mm3 (3.60-5.2); RDW 14.1 % (11.6-15.6); WHITE BLOOD COUNT 8.1 K/mm3 (4.0-10.8)
[2020-08-12] MEDS: ASPIRIN 325 MG TABLET PO SCH (08:24)
[2020-08-12 08:31] LABS: ALBUMIN 2.7 g/dl (3.4-5.0); BILIRUBIN,TOTAL 0.6 mg/dl (0.2-1); CALCIUM 7.7 mg/dl (8.5-10); CREATININE 0.5 mg/dl (0.55-1.3); MAGNESIUM 1.9 mg/dL (1.8-2.4); POTASSIUM 3.8 mmol/L (3.5-5.1)
[2020-08-12] MEDS ORDERED: FLUoxetine HCL 20 MG CAPSULE ONE (09:16)
[2020-08-12] MEDS ORDERED: FLUoxetine HCL 10 MG CAPSULE ONE (09:16)
[2020-08-12] MEDS ORDERED: POTASSIUM CHLORIDE TABS 20 MEQ TABLET.ER (FP) PO ONE (09:30)
[2020-08-12] MEDS: GABAPENTIN 300 MG CAPSULE PO SCH ×2 (09:53→14:55)
[2020-08-12] MEDS: FLUOXETINE HCL PO SCH (09:53)
[2020-08-12] MEDS: MULTIVITAMINS (DAILY MVI) TABLET (FP) PO SCH (09:54)
[2020-08-12] MEDS: SENNOSIDES/DOCUSATE COMBO (SENNA PLUS) TABLET (UD) PO SCH (09:54)
[2020-08-12] MEDS: PANTOPRAZOLE 40 MG TABLET PO SCH (09:55)
[2020-08-12] MEDS: PROPRANOLOL HCL PO SCH (09:55)
[2020-08-12] MEDS: FERROUS SO4 325 MG TABLET (FP) PO SCH (09:55)
--- NOTE | 2020-08-12 12:11 | DS ---
Physical Exam: SUBJECTIVE: Patient seen and examined OBJECTIVE: Vital Signs Period Temp Pulse Resp BP Sys/Butler Pulse Ox Last 24 Hr 98.7 F-99.6 F 74-88 18-18 102-106/45-80 95-100 PHYSICAL EXAM GENERAL: The patient is awake, alert, and fully oriented, in no acute distress. HEAD: Normal with no signs of trauma. EYES: PERRL, extraocular movements intact, sclera anicteric, conjunctiva clear. NECK: Trachea midline, full range of motion, supple. LUNGS: Breath sounds equal, clear to auscultation bilaterally, no wheezes, no crackles, no accessory muscle use. HEART: Regular rate and rhythm, S1, S2 without murmur, rub or gallop. ABDOMEN: Soft, nontender, nondistended, normoactive bowel sounds, no guarding, no rebound, no hepatosplenomegaly, no masses. EXTREMITIES: 2+ pulses, warm, well-perfused, no edema. NEUROLOGICAL: Cranial nerves II through XII grossly intact. Normal speech, Slow steady gait with rolling walker PSYCH: Normal mood, normal affect. SKIN: Warm, dry, normal turgor, no rashes or lesions noted. Right hip with clean dry dressing, no exudate or erythema noted. LABS Laboratory Results - last 24 hr 08/12/20 08/12/20 06:00 08:01 WBC 8.1 RBC 3.38 L Hgb 9.3 L Hct 28.6 L MCV 84.7 MCH 27.6 MCHC 32.6 RDW 14.1 Plt Count 207 MPV 8.3 Sodium 136 Potassium 3.8 Chloride 103 Carbon Dioxide 26 Anion Gap 7 L BUN 10.0 Creatinine 0.5 L Est GFR (CKD-EPI)AfAm 125.40 Est GFR (CKD-EPI)NonAf 108.19 Random Glucose 103 Calcium 7.7 L Magnesium 1.9 Total Bilirubin 0.6 AST 55 H ALT 32 Alkaline Phosphatase 62 Total Protein 5.0 L Albumin 2.7 L HOSPITAL COURSE: Date of Admission:08/10/20 Date of Discharge: 08/12/20 Minutes to complete discharge: 50 Discharge Summary Problems reviewed: Yes Reason For Visit: OSTEOARTHRITIS degenerative joint disease right hip s/p right total hip replacement [facility] on 08/10/[address] Mcduffie. Procedures: Principal: Operative Date: 08/10/20 (te). Pre-Operative Diagnosis: right hip djd. Operation: right raji thr. Post-Operative Diagnosis: Same as Pre-op. Surgeon: Presley Mcduffie Dam Attendant: Oscar Blanton. Anesthesiologist/MAINTENANCE EQUIPMENT OPERATOR: Suhas Hansen. Anesthesia: Spinal, Local. Specimens Removed: femoral head. Estimated Blood Loss (mls): 150 Other Procedures: right hip X-ray 08/10/2020. Right hip: Hip replacement. Single view of the right hip reveals a hip replacement with soft tissue air. The right hemipelvis appears intact. There are pelvic phleboliths. Correlation recommended. The imaging is available for review. Reported By: Dl Perez MD 08/10/20 [id number] Hospital Course: 54 year-old female with a PMH significant for depression, anxiety, OCD, fibroids and irregular menses, degenerative joint disease right hip s/p right total hip replacement [facility] on 08/10/[address] Mcduffie. Pt was volume resuscitated and pain controlled with oxycodone, neurontin, tramadol and tylenol. Pt completed physical therapy on 08/12 and deemed stable for discharge home. Health Concerns: Discharge Instructions for Total Hip Replacement Surgery You had a hip replacement surgery. This means your natural hip was replaced with an artificial joint (prosthesis). You may be recovering at home or in a rehabilitation facility. Either way, you must take care of your new hip. Do this by moving and sitting the way you were taught in the hospital. Also, be sure to see your healthcare provider for follow-up visits, and return to activity slowly. A total hip replacement is major surgery. So it will be a few months before you can move comfortably. Home care Take your pain medicine exactly as directed. Dont drive until your healthcare provider says its OK. And never drive while taking opioid pain medicine. Wear the support stockings you were given in the hospital. Wear them for 24 hours a day for 3 to 4 weeks. To relieve discomfort at night, get up and move around. Tell all your healthcare providersincluding your dentistabout your artificial joint before any procedure. You may need to take antibiotics before dental work and other medical procedures to reduce the risk of infection. Arrange to have your mag removed around 2 weeks after surgery. The mag were used to close the skin incision. Incision care Check your incision daily for redness, swelling, tenderness, or drainage. Prevent infection by washing your hands often. If an infection occurs, it will need to be treated right away. Call your healthcare provider right away if you think you may have an infection. Symptoms include a fever, chills, redness, warmth or an incision that leaks white, green, or yellow fluid. Don't soak your incision in water until your provider says its OK. This means no hot tubs, bathtubs, or swimming pools. Wait 5 to 7 days after your surgery to start showering. Then shower as needed. Carefully wash your incision with soap and water. Gently pat it dry. Dont rub the incision, or apply creams or lotions to it. And to prevent falling when showering, sit on a shower stool. Sitting and sleeping Dont sit for more than 30 to 45 minutes at a time. Use chairs with arms, and sit with your knees slightly lower than your hips. Dont sit on low or sagging chairs or couches. Dont lean forward while sitting. Dont cross your legs. Keep your feet flat on the floor. Dont turn your foot or leg inward. This stresses your hip joint. Use a raised toilet seat for 6 weeks after surgery. Ask your healthcare provider if its OK to sleep on your stomach or on the side that has the new hip. Use pillows between your legs when sleeping on your back or on your side. Sit on a firm cushion when you ride in a car and dont sit too low. Try not to bend your hip too much when getting in and out of the car. Moving safely Dont bend at the hip when you bend over. Don't bend at the waist to put on socks and shoes. And don't continuous pickling line pickler items from the floor. Use a cane, crutches, a walker, or handrails until your balance, flexibility, and strength improve. And remember to ask for help from others when you need it. Free up your hands so that you can use them to keep balance. Use a gale pack, apron, or pockets to carry things. Follow your healthcare providers orders about how much weight to put on the affected leg. Walk often and do prescribed exercises as instructed. Arrange your household to keep the items you need within reach. Remove electrical cords, throw rugs, and anything else that may cause you to fall. Use nonslip bath mats, grab bars, a raised toilet seat, and a shower chair in your bathroom. Follow-up Make a follow-up appointment as directed by your healthcare provider. Reference: [email or web address] Plan of Treatment: Call 911 Call 911 right away if you have any of the following: Chest pain Shortness of breath When to call your healthcare provider Call your healthcare provider right away if you have any of the following: Hip pain gets worse Pain or swelling in your calf or leg not related to your incision Tenderness or redness in your calf Fever of 100.4F (38C) or higher, or as directed by your healthcare provider Shaking chills Swelling or redness at the incision site gets worse Fluid draining from the incision Goals: Rehabilitation Physical therapy (PT) is an important part of the recovery process. Most people are able to stand and even walk, with the help of a physical therapist, within the first 24 hours. Your length of stay in the hospital will depend upon a number of factors, including pain control, demonstration of safe mobility, and medical stability. After your surgery, you will work with a physical therapist to develop an exercise and rehabilitation program. With less invasive surgical techniques and evolving protocols for pain management, an increasing number of hip replacements are being done as "outpatient" procedures, meaning you can go home the same day. In some situations, it isn't safe to go home immediately, and you will need to stay in the hospital or go to a nursing facility for rehabilitation. You will continue your therapy until you are able to independently perform daily activities. The rehabilitation program generally includes exercises to stretch and strengthen the muscles surrounding the hip joint, as well as training in activities of daily life (eg, stair climbing, bending, walking). The goal of the rehabilitation is to regain strength and motion. After several weeks of recovery, you will be encouraged to return to an active lifestyle. Most people can resume their normal activities within weeks to months. With newer surgical techniques, recovery time may be reduced. Continued improvement may be seen up to 12 months following surgery. While high-impact sports such as running and contact sports are not usually recommended after hip replacement, you can typically participate in most other low-impact activities like walking, cycling, and swimming. With modern implants and bearing surfaces, it is now anticipated that most hip replacements will last well beyond the previous expectation of 10 to 15 years. Most people are very satisfied with their outcome, reporting minimal to no pain and significantly improved function and quality of life. Reference: [email or web address] Condition: Good - Instructions Diet, Activity, Other Instructions: Post-op Instructions-Total Hip Replacement Call the office for a follow-up appointment in 1 week - [phone] Aspirin 325mg daily for 6 weeks. Pain medication was sent into your pharmacy. Apply Graduated Compression Stockings (TEDs) to both lower extremities- remove daily for hygiene ONLY Apply Sequential Compression Device (SCDs) to both Lower extremities remove for PT and hygiene ONLY Apply cold packs to affected area for 15 minutes every 2 hours. Physical Therapist will come to your home for the first 5 days. You will be set up with outpatient PT at your first post-operative visit. Patient may ambulate as tolerated-encourage self care (at least every 2-3 hours while awake) with walker or cane Maintain Aquacel (waterproof) dressing to operative wound (will be removed by surgeon at first office visit) Shower with Aquacel dressing in place-if Aquacel integrity compromised, remove and apply dry sterile dressing and notify Orthopedist. DO NOT SHOWER unless Orthopedists approves without Aquacel dressing CONTACT THE OFFICE FOR ANY CHANGE IN YOUR CONDITION (for example-fever greater than 102 degrees, excessive bleeding from operative site, purulent drainage, severe swelling or pain) GO TO THE EMERGENCY ROOM IF THERE IS A MEDICAL EMERGENCY Hip Precautions: * Keep a rolled towel under affected heel while in bed or chair (to keep knee in extension) * Dependent upon approach: * Posterior - do not cross legs; do not sit on low chairs or toilets. * If you have any questions, please do not hesitate to call the office - [phone]. Referrals: Presley Mcduffie MD [Staff Physician] - Disposition: VNS/HOME HEALTH CARE - Home Medications Comprehensive Discharge Medication List: Ambulatory Orders Gabapentin 1,500 mg PO HS 09/16/19 Ascorbic Acid [Vitamin C -] 500 mg PO DAILY 08/06/20 Calcium Carbonate/Vitamin D3 [Calcium 600-Vit D3 2,500 Sftgl] 2 tab PO DAILY 08/06/20 Cyanocobalamin [Vitamin B12 -] 1,000 mcg PO DAILY 08/06/20 Ferrous Sulfate 325 mg PO DAILY 08/06/20 Fluoxetine HCl 70 mg PO DAILY 08/06/20 Gabapentin 300 mg PO BID 08/06/20 Meclizine HCl 25 mg PO PRN PRN 08/06/20 propRANOLol HCL [Inderal -] 30 mg PO DAILY 08/06/20 Aspirin [ASA -] 325 mg PO DAILY@0800 tablet 08/10/20 Oxycodone HCl/Acetaminophen [Percocet 5-325 mg Tablet -] 1 - 2 tab PO Q6H #50 tab MDD 8 08/10/20 Problem List - Problems (1) Post-operative pain Code(s): G89.18 - OTHER ACUTE POSTPROCEDURAL PAIN (2) DVT prophylaxis Code(s): Z29.9 - ENCOUNTER FOR PROPHYLACTIC MEASURES, UNSPECIFIED (3) Status post right hip replacement Code(s): Z96.641 - PRESENCE OF RIGHT ARTIFICIAL HIP JOINT (4) Degenerative joint disease of right hip Code(s): M16.11 - UNILATERAL PRIMARY OSTEOARTHRITIS, RIGHT HIP This patient is new to me today: Yes Date on this admission: 08/12/20 Emergency Visit: No Critical Care patient: No - Discharge Referral Referred to [facility] No
[2020-08-12 15:27] VITALS: BP 104/64; PULSE 78; TEMP 98.6
--- NOTE | 2020-08-17 10:53 | PATH ---
Surgical Pathology Report Patient Name: JOHN RILEY Med. Rec. #: [id number] /Age/Gender: 1965 (Age: 54) / F Account: [id number] Location: [facility] Taken: 08/10/2020 Received: 08/10/2020 Reported: 08/17/2020 Physicians: Presley Mcduffie M.D. Specimen(s) Received RIGHT FEMORAL HEAD Clinical History Osteoarthritis right hip Final Diagnosis FEMORAL HEAD, HIP, RIGHT, TOTAL HIP REPLACEMENT MAKOPASTY: BONE WITH DEGENERATIVE JOINT DISEASE. FOCAL HYPERCELLULAR BONE MARROW. SEE COMMENT. Comment: There is a focal area of hypercellularity within the marrow. Hematopathology consultation pending to rule out an occult myelodysplastic syndrome/lymphoproliferative disorder. History of anemia and monocytosis noted. Office of Dr. Mcduffie informed of findings (NATALEE Jon), 08/17/2020. Electronically Signed Gianna Garcia M.D. Gross Description Received in formalin, labeled "right femoral head," is a 4.2 x 4.0 x 4.0 cm. femoral head with a 0.8 cm in length portion of femoral neck attached. The margin of resection is smooth. There is a 3.7 cm in greatest dimension area of eburnation present. The remaining articular surface is crowe-yellow and diffusely nodular and granular. The underlying trabecular bone is yellow and hard. A sales representatives section is submitted in one cassette, following decalcification. 08/14/2020 saudi08/14/2020
== END 2020-08-12 15:00 | disposition home health service (06) | DRG 470 ==
LOC: FM/S 07:32
PROVIDERS: ADMIT Orthopaedic Surgery; ATTEND Orthopaedic Surgery
PROC: 8E0Y0CZ Robotic Assisted Procedure of Lower Extremity, Open Approach (ICD-10-PCS; 2020-08-10)
PROC: 0SR90JZ Replacement of Right Hip Joint with Synthetic Substitute, Open Approach (ICD-10-PCS; principal; 2020-08-10 11:30)
DX: M16.11 Unilateral primary osteoarthritis, right hip (principal); I10 Essential (primary) hypertension; R42 Dizziness and giddiness; F32.9 Major depressive disorder, single episode, unspecified; F41.9 Anxiety disorder, unspecified; D25.9 Leiomyoma of uterus, unspecified; N92.6 Irregular menstruation, unspecified; F42.9 Obsessive-compulsive disorder, unspecified
CPT/HCPCS: 36415; 73502-TC-RT-FY; 80053; 83735; 85027; 88305-TC; 88311-TC; 94760; 97116-GP; 97162-GP

== ENCOUNTER 2020-09-25 08:42 | Day surgery (SDC) | payer OTHER ==
[2020-09-25] MEDS ORDERED: IRON SUCROSE INJECTION 200 MG in SODIUM CHLORIDE 100 ML IVPB ONE (10:00)
[2020-09-25 16:08] VITALS: TEMP 97.6
[2020-09-25 16:09] VITALS: BP 124/63; PULSE 80
== END 2020-09-25 11:00 | disposition home or self-care (01) ==
LOC: JONCNONCHE 08:42
PROVIDERS: ATTEND Internal Medicine Hematology & Oncology
PROC: 3E033GC Introduction of Other Therapeutic Substance into Peripheral Vein, Percutaneous Approach (ICD-10-PCS; principal; 2020-09-25)
DX: D50.9 Iron deficiency anemia, unspecified (principal)
CPT/HCPCS: 96365; J1756

== ENCOUNTER 2020-10-11 13:24 | Day surgery (SDC) | payer OTHER ==
[~2020-10-11 13:24] MED LIST changes: -BUPIVICAINE 0.25%/MORPH PF/KETOROLAC - 51ML DISP.SYRINGE IA ONE; -CEFAZOLIN 2 GM/D5W 2 GM/50 ML ML IVPB ONE; -CELECOXIB 200 MG CAPSULE PO ONE; +IRON SUCROSE INJECTION 200 MG in SODIUM CHLORIDE 100 ML IVPB ONE; -PANTOPRAZOLE 40 MG TABLET (FP) PO ONE; -TRANEXAMIC ACID 1000 MG/10 ML VIAL IVPB ONE; -TRANEXAMIC ACID 1000 MG/10 ML VIAL IVPUSH ONE; -VANCOMYCIN 1,000 MG VIAL (RESTRICTED TO ID ONLY) IVPB ONE; -oxyCODONE HCL 10 MG SUSTAINED ACTING TABLET PO ONE
[2020-10-11 17:18] VITALS: TEMP 98.8
[2020-10-11 17:19] VITALS: BP 109/54; PULSE 67
== END 2020-10-11 15:00 | disposition home or self-care (01) ==
LOC: JONCNONCHE 13:24
PROVIDERS: ATTEND Internal Medicine Hematology & Oncology
PROC: 3E033GC Introduction of Other Therapeutic Substance into Peripheral Vein, Percutaneous Approach (ICD-10-PCS; principal; 2020-10-11)
DX: D50.9 Iron deficiency anemia, unspecified (principal)
CPT/HCPCS: 96365; J1756

== ENCOUNTER 2020-10-16 10:04 | Day surgery (SDC) | payer OTHER ==
[2020-10-16] MEDS ORDERED: IRON SUCROSE INJECTION 200 MG in SODIUM CHLORIDE 100 ML IVPB ONE (10:30)
[2020-10-16 10:40] LABS: BASO % 0.9 % (0-2.0); EOS % 6.2 % (0-4.5); HEMATOCRIT 39.3 % (32.4-45.2); HEMOGLOBIN 12.7 GM/dL (10.7-15.3); LYMPH % 17.4 % (8-40); MCH 26.2 pg (25.7-33.7); MCHC 32.3 g/dl (32.0-36.0); MEAN CELL VOLUME 81.1 fl (80-96); MEAN PLT VOLUME 7.5 fl (7.5-11.1); MONO % 9.2 % (3.8-10.2); NEUT % 66.3 % (42.8-82.8); PLATELET COUNT 256 K/MM3 (134-434); RBC 4.85 M/mm3 (3.60-5.2); RDW 15.1 % (11.6-15.6); WHITE BLOOD COUNT 6.3 K/mm3 (4.0-10.0)
[2020-10-16 11:04] LABS: POTASSIUM 4.3 mmol/L (3.5-5.1)
[2020-10-16 11:09] LABS: ALBUMIN 3.5 g/dl (3.4-5.0); CALCIUM 8.7 mg/dL (8.5-10.1); MAGNESIUM 2.4 mg/dL (1.8-2.4)
[2020-10-16 11:11] LABS: BLOOD UREA NITROGEN 14.9 mg/dL (7-18)
[2020-10-16 11:12] LABS: BILIRUBIN,DIRECT 0.1 mg/dL (0.0-0.2); CREATININE 0.7 mg/dL (0.55-1.3)
[2020-10-16 11:13] LABS: IRON SERUM 35 ug/dL (50-175); TOT PROT 7.1 g/dl (6.4-8.2)
[2020-10-16 11:14] LABS: TOTAL IRON BINDING CAPACITY 235 ug/dL (250-450)
[2020-10-16 11:17] LABS: BILIRUBIN,TOTAL 0.4 mg/dL (0.2-1)
[2020-10-16 16:04] VITALS: PULSE 78; TEMP 98.3
[2020-10-16 16:05] VITALS: BP 138/60
== END 2020-10-16 10:55 | disposition home or self-care (01) ==
LOC: JONCNONCHE 10:04
PROVIDERS: ATTEND Internal Medicine Hematology & Oncology
DX: D50.9 Iron deficiency anemia, unspecified (principal)
CPT/HCPCS: 36415; 80048; 80076; 82728; 83540; 83550; 83735; 85025; 96365; J1756